=== PATIENT | male | born 2000 | race Caucasian/White ===

== ENCOUNTER → 2021-04-16 10:54 | Outpatient (CLI) | payer BC, SELFPAY ==
[2021-04-16 11:45] LABS: COVID19 -Nasal RAPID POSITIVE (Negative)
== END ==
PROVIDERS: Visit Provider Nurse Practitioner
DX: U07.1 COVID-19 (principal)
CPT/HCPCS: 87635

== ENCOUNTER 2022-11-13 15:46 | Emergency (ER) | payer OTHER, SELFPAY ==
[2022-11-13 15:53] VITALS: BP 140/74; PULSE 66; RESP 18; TEMP 36.3; O2SAT 97; BMI 35.9
--- NOTE | 2022-11-13 15:57 | DI.RAD.S_ITS ---
PROCEDURE: XR FOOT LT MIN 3V INDICATIONS: beam fell on foot TECHNIQUE: 3 views of the foot were acquired. COMPARISON: None. FINDINGS: Bones: No fractures or dislocations. No suspicious bony lesions. Soft tissues: No tibiotalar joint effusion. Achilles tendon appears normal. IMPRESSION: No visualized acute fracture or dislocation. However, if clinical concern and/or pain persist, short interval imaging followup in 7-10 days is recommended, as occult injury cannot be definitively excluded. Dictated by: Rose Valdez M.D. on 11/13/2022 at 16:50 Approved by: Rose Valdez M.D. on 11/13/2022 at 16:50
--- NOTE | 2022-11-13 18:01 | ED.LOWEXIN ---
HPI - Extremity Injury (Lower) <Dago Vilchis PA-C - Last Filed: 11/13/22 18:26> General Chief Complaint: Extremity Injury, Lower Stated Complaint: Beam fell on L foot Time Seen by Provider: 11/13/22 17:26 Source: patient Mode of arrival: Ambulatory History of Present Illness HPI Narrative: This is a 21-year-old male presents to the emergency department due to left foot pain after a wooden beam fell on his left foot. Denies any numbness, changes in range of motion of his foot or ankle, or toes but just wants to ?make sure it is not broken?. Related Data Previous Rx's Medication Instructions Recorded benzonatate 100 mg capsule 100 mg PO TID PRN cough #30 caps 11/07/18 (Ansley Taylor) codeine 10 mg-guaifenesin 100 mg/5 10 ml PO .QHS PRN cough limiting 11/07/18 mL oral liquid (Cheratussin AC) sleep #120 mL ipratropium 20 mcg-albuterol 100 1 puff inhalation QID PRN wheezing 11/07/18 mcg/actuation mist for inhalation or shortness of breath #4 grams (Combivent Respimat) Allergies Allergy/AdvReac Type Severity Reaction Status Date / Time No Known Drug Allergies Allergy Unverified 11/07/18 11:40 Review of Systems <JAJA Strauss Last Filed: 11/13/22 18:26> Review of Systems Narrative: GENERAL: Denies chills, fatigue, malaise, fever, sweats. HEENT: Denies sinus pain, ear pain, sore throat, difficulty swallowing, dizziness. RESPIRATORY: Denies dyspnea, cough, wheezing, hemoptysis, sputum. CARDIOVASCULAR: Denies chest pain, palpitations, orthopnea, edema, GASTROINTESTINAL: Denies nausea, vomiting, abdominal pain, diarrhea, constipation, melena. : Denies dysuria, frequency, incontinence, hematuria, urinary retention. MUSCULOSKELETAL: Left foot pain SKIN: Denies rash, skin lesions, or other NEUROLOGIC: Denies weakness, headache, numbness, change in speech, confusion, seizures, incoordination. PSYCHIATRIC: No concerning psychosocial issues. 12 point review of systems is negative except for those stated above Patient History <Dago Vilchis PA-C - Last Filed: 11/13/22 18:26> Social History Smoking Status: Never smoker Smoking Status: Never smoker alcohol intake frequency: 0-2 drinks per day Substance Use Type: does not use Exam <Dago Vilchis PA-C - Last Filed: 11/13/22 18:26> Narrative Exam Narrative: GENERAL: Well-developed patient, in mild distress. HEAD: Atraumatic. Normocephalic. EYES: Pupils equal round and reactive. Extraocular motions intact. No scleral icterus. No injection or drainage. ENT: Nose without bleeding, purulent drainage. Throat without erythema, tonsillar hypertrophy or exudate. Airway patent. NECK: Trachea midline. Non tender CARDIOVASCULAR: Regular rate and rhythm without murmurs, gallops, or rubs. RESPIRATORY: Clear to auscultation. Breath sounds equal bilaterally. No wheezes, rales, or rhonchi. GASTROINTESTINAL: Abdomen soft, non-tender, nondistended. EXTREMITIES: Mild tenderness to palpation to the dorsum of the left foot. Very mild ecchymosis. Neurovascularly intact BACK: Nontender without deformity or crepitance. No flank tenderness. NEURO: AOx3. SKIN: No rash or erythema of visible areas Initial Vital Signs Initial Vital Signs: Vital Signs Temperature 97.4 F L 11/13/22 15:53 Pulse Rate 66 11/13/22 15:53 Respiratory Rate 18 11/13/22 15:53 Blood Pressure 140/74 11/13/22 15:53 Pulse Oximetry 97 11/13/22 15:53 Oxygen Delivery Method Room Air 11/13/22 15:53 <Jonna Greer DO - Last Filed: 11/14/22 14:45> Initial Vital Signs Initial Vital Signs: Vital Signs Temperature 97.4 F L 11/13/22 15:53 Pulse Rate 66 11/13/22 15:53 Respiratory Rate 18 11/13/22 15:53 Blood Pressure 140/74 11/13/22 15:53 Pulse Oximetry 97 11/13/22 15:53 Oxygen Delivery Method Room Air 11/13/22 15:53 Course <Dago Vilchis PA-C - Last Filed: 11/13/22 18:26> Orders Ordered: ED Orders 11/13/22 15:57 XR foot LT min 3V Stat Vital Signs Vital signs: Vital Signs - 8 hr 11/13/22 15:53 Temperature 97.4 F L Pulse Rate 66 Respiratory Rate 18 Blood Pressure 140/74 Pulse Oximetry 97 Oxygen Delivery Method Room Air <Jonna Greer DO - Last Filed: 11/14/22 14:45> Orders Ordered: ED Orders 11/13/22 15:57 XR foot LT min 3V Stat Vital Signs Vital signs: Vital Signs - 8 hr 11/13/22 15:53 Temperature 97.4 F L Pulse Rate 66 Respiratory Rate 18 Blood Pressure 140/74 Pulse Oximetry 97 Oxygen Delivery Method Room Air MDM - Extremity Injury (Lower) <Dago Vilchis PA-C - Last Filed: 11/13/22 18:26> Imaging Data Extremity x-ray #1: Radiologist's Impression: [address] [address] XRay Report Signed Patient: Román Kohler MR#: [id number] : 2000 Acct:[id number] Age/Sex: 21 / M Date of Service: 11/13/22 Loc: ED Accession Number: [id number] ?? Procedure: XR foot LT min 3V Ordering Provider: Jonna Greer D.O. PROCEDURE:? XR FOOT LT MIN 3V ? INDICATIONS:? beam fell on foot ? TECHNIQUE:? 3 views of the foot were acquired.? ? COMPARISON:? None. ? FINDINGS:? ? Bones:? No fractures or dislocations.? No suspicious bony lesions.? ? Soft tissues:? No tibiotalar joint effusion.? Achilles tendon appears normal.? ? ? IMPRESSION:? No visualized acute fracture or dislocation. However, if clinical concern and/or pain persist, short interval imaging followup in 7-10 days is recommended, as occult injury cannot be definitively excluded. ? ? Dictated by: Rose Valdez M.D. on 11/13/2022 at 16:50 ? ? Approved by: Rose Valdez M.D. on 11/13/2022 at 16:50 ? MDM Narrative Medical decision making narrative: MDM * differential diagnosis includes but not limited to fracture, neurovascular injury, soft tissue injury * Prior records reviewed: Patient has not been here for similar complaints in the past. * My lab interpretation: None obtained * My imgaing interpretation: Foot x-ray for negative for fractures or other bony abnormalities * Clinical Decision Rules/Scores evaluated: None * Independent discussions with: None ED Course: This is a 21-year-old male presents to the emergency department due to a left foot injury after dropping a beam on it. X-ray negative for any fractures and it was neurovascularly intact throughout. Recommended rest ice compression and elevation Shared Decision Making: Discussed plan patient is comfortable with plan Social Considerations: None Disposition: Discharged to home Discharge Plan Departure Patient Disposition: Home Clinical Impression: Foot injury Instructions: How To Perform RICE (Rest, Ice, Compress, Elevate) Activity Restrictions/Additional Instructions: Thank you for coming to the [facility] Emergency Department today. The x-ray was negative for any fractures. Please use rest, ice, compression, and elevation to help with the pain. I hope you feel better soon. Prescriptions: No Action benzonatate [Tessalon Perles] 100 mg capsule 100 mg PO TID PRN (Reason: cough) Qty: 30 0RF codeine-guaifenesin [Cheratussin AC] 10-100 mg/5 mL liquid 10 ml PO .QHS PRN (Reason: cough limiting sleep) Qty: 120 0RF Combivent Respimat 20-100 mcg/actuation mist 1 puff INHALATION QID PRN (Reason: wheezing or shortness of breath) Qty: 4 0RF Rx Instructions: space evenly during waking hours Referrals: Miscellaneous,Doctor, MD [Primary Care Provider] - Stand Alone Forms: Patient Portal/API <Jonna Greer DO - Last Filed: 11/14/22 14:45> Cosign ED Attending Kristian Attestation: I was immediately available in the department for consultation. Documentation has been reviewed.
== END 2022-11-13 18:26 | disposition home or self-care (01) ==
PROVIDERS: Emergency Provider Physician Assistant Medical
DX: S99.922A Unspecified injury of left foot, initial encounter (principal); W22.8XXA Striking against or struck by other objects, initial encounter
CPT/HCPCS: 73630; 99281; 99283